=== PATIENT | male | born 2000 | race Hispanic/Latino ===

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

== ENCOUNTER 2022-01-02 15:26 | Emergency (ER) | payer OTHER ==
[~2022-01-02 15:26] MED LIST: Iopamidol 370 76% 125 ML VIAL FS ONE; Sodium Chloride 0.9% 100 ML BAG ONE
[2022-01-02] MEDS ORDERED: Acetaminophen 500 MG TAB ONE (15:37)
[2022-01-02] MEDS ORDERED: Ibuprofen 800 MG TAB ONE (15:37)
[2022-01-02] MEDS ORDERED: Prochlorperazine 10 MG/2 ML VIAL ONE (16:19)
[2022-01-02] MEDS ORDERED: diphenhydrAMINE 50 MG/ML VIAL ONE (16:19)
[2022-01-02] MEDS ORDERED: Lactated Ringer's 1,000 ML ONE (16:19)
[2022-01-02 16:41] LABS: #Basophils 0.1 thou/uL (0.0-0.2); #Lymphocytes 0.6 thou/uL (1.20-3.40); #Monocytes 0.7 thou/uL (0.11-0.59); #Neutrophils 5.8 thou/uL (1.40-6.50); %Basophils 1.8 % (0.0-1.0); %Eosinophils 0.5 % (0.0-10.0); %Lymphocytes 8.3 % (28.0-48.0); %Monocytes 10.1 % (0.0-4.0); %Neutrophils 79.3 % (31.0-61.0); Hemoglobin 14.7 g/dL (14.0-18.0); Mean Corpuscular HGB CONC 35.8 g/dL (32.0-36.0); Mean Corpuscular Hemoglobin 29.8 pg (25.0-35.0); Mean Corpuscular Volume 83.3 fL (78.0-98.0); Mean Platelet Volume 7.9 fL (7.4-10.4); Platelet Count 246 thou/uL (130-400); Red Blood Cell (RBC) Count 4.93 mill/uL (4.00-5.20); White Blood Cell (WBC) Count 7.3 thou/uL (4.8-10.8)
[2022-01-02 16:48] LABS: ALT (SGPT) 15 U/L (8-55); AST (SGOT) 17 U/L (10-45); Albumin 4.7 g/dL (3.5-5.0); Alkaline Phosphatase 89 U/L (50-130); Anion Gap 17 mmol/L (10-20); BUN (Urea Nitrogen) 13 mg/dL (8.4-21.0); Calc. Creatinine Clearance 0 mL/min (70-130); Calcium 9.4 mg/dL (7.8-10.44); Carbon Dioxide 21 mmol/L (22-29); Chloride 107 mmol/L (98-107); Estimated GFR 110; Globulin 3.1 g/dL (2.4-3.5); Glucose 99 mg/dL (70-105); Protein, Total 7.8 g/dL (6.0-8.3); Sodium 141 mmol/L (136-145)
[2022-01-02 17:46] LABS: SARS-CoV-2 NAA Rapid Test DETECTED (NotDetected)
== END 2022-01-02 18:11 | disposition home or self-care (01) ==
LOC: MADERS 15:26
DX: U07.1 COVID-19 (principal)
CPT/HCPCS: 36415; 70450; 70496; 71045; 80053; 83605; 85025; 87040; 93005; 94760; 96361; 96374; 96375; J0780; J1200; J7120; Q9967